=== PATIENT | female | born 1980 | race Caucasian/White ===

== ENCOUNTER → 2016-09-06 | Outpatient (CLI) | payer BC | LOC: COL.RAD 07:22 | DX: R10.11 Right upper quadrant pain (principal) ==

== ENCOUNTER → 2016-09-12 | Outpatient (CLI) | payer BC | LOC: BHSO 14:31 | DX: F33.42 Major depressive disorder, recurrent, in full remission (principal) ==

== ENCOUNTER → 2017-02-14 | Outpatient (CLI) | payer BC | LOC: BHSO 09:08 | DX: F33.42 Major depressive disorder, recurrent, in full remission (principal) ==

== ENCOUNTER → 2017-07-31 | Outpatient (CLI) | payer BC | LOC: BHSO 09:26 | DX: F33.42 Major depressive disorder, recurrent, in full remission (principal) ==

== ENCOUNTER → 2018-01-23 | Outpatient (CLI) | payer BC | LOC: BHSO 09:10 | DX: F41.1 Generalized anxiety disorder (principal) | CPT/HCPCS: G0463 ==

== ENCOUNTER → 2018-06-13 | Outpatient (CLI) | payer BC | LOC: BHSO 13:00 | DX: F41.1 Generalized anxiety disorder (principal) | CPT/HCPCS: G0463 ==

== ENCOUNTER → 2019-01-07 | Outpatient (CLI) | payer BC | LOC: BHSO 08:37 | DX: F41.1 Generalized anxiety disorder (principal) | CPT/HCPCS: G0463 ==

== ENCOUNTER → 2019-04-08 | Outpatient (CLI) | payer BC | LOC: BHSO 09:40 | DX: F41.1 Generalized anxiety disorder (principal) | CPT/HCPCS: G0463 ==

== ENCOUNTER → 2019-07-08 | Outpatient (CLI) | payer BC | LOC: BHSO 09:25 | DX: F41.1 Generalized anxiety disorder (principal) | CPT/HCPCS: G0463 ==

== ENCOUNTER → 2019-10-07 | Outpatient (CLI) | payer BC | LOC: BHSO 12:56 | DX: F33.42 Major depressive disorder, recurrent, in full remission (principal) | CPT/HCPCS: G0463 ==

== ENCOUNTER → 2020-05-23 | Outpatient (CLI) | payer BC | LOC: BHSO 13:18 | DX: F33.42 Major depressive disorder, recurrent, in full remission (principal) | CPT/HCPCS: G0463 ==

== ENCOUNTER → 2021-05-25 | Outpatient (CLI) | payer BC | LOC: MC.RAD 08:45 | DX: Z12.31 Encounter for screening mammogram for malignant neoplasm of breast (principal) ==

== ENCOUNTER → 2024-01-14 | Outpatient (CLI) | payer BC ==
[~2024-01-14] MED LIST: ALLEGRA-D 24HR1 T24 PO; BRINTELLIX10 PO; WELLBUTRIN XL300 M1 PO
== END ==
LOC: MC.RAD 16:35
DX: Z12.31 Encounter for screening mammogram for malignant neoplasm of breast (principal); N63.10 Unspecified lump in the right breast, unspecified quadrant

== ENCOUNTER 2024-03-19 05:55 | Day surgery (SDC) | payer BC ==
[~2024-03-19] VITALS: Ht 157.5 cm; Wt 77.1 kg
[~2024-03-19 05:55] MED LIST changes: -ALLEGRA-D 24HR1 T24 PO; -BRINTELLIX10 PO; +Ondansetron 4 MG/2 ML VIAL IV PRN; -WELLBUTRIN XL300 M1 PO
[2024-03-19] MEDS ORDERED: LR 1,000 ML IV SCH (06:00)
[2024-03-19 06:42] VITALS: BP 121/84; PULSE 86; TEMP 98.2
[2024-03-19] MEDS ORDERED: BRINTELLIX10 PO (06:44)
[2024-03-19] MEDS ORDERED: WELLBUTRIN XL300 M1 PO (06:45)
[2024-03-19] MEDS ORDERED: ALLEGRA-D 24HR1 T24 PO (06:46)
[2024-03-19] MEDS ORDERED: Lidocaine PF 2% (20 MG/ML) 5 ML VIAL ONE (07:00)
[2024-03-19 08:20] VITALS: BP 104/67; PULSE 80; TEMP 97.5
[2024-03-19 08:35] VITALS: BP 105/68; PULSE 76
[2024-03-19 08:50] VITALS: BP 113/81; PULSE 76
--- NOTE | 2024-03-19 09:10 | NUR ---
0820 RETURNS TO ROOM 2 PER CART. AWAKE, ALERT. RESP UNLABORED. AMBULATES TO RECLINER WITH STANDBY ASSIST. DENIES NAUSEA OR ABD PAIN. VITAL SIGNS OBTAINED. CALL LIGHT AT SIDE. IN ROOM. 0835 TOLERATES PO JUICE WITHOUT NAUSEA 0840 DISCHARGE INSTRUCTIONS REVIEWED. PATIENT VERBALIZES UNDERSTANDING. COPY PROVIDED IN DISCHARGE FOLDER. 0855 DR. CEJA HERE TO SEE PATIENT 0905 DRESSES SELF
== END 2024-03-19 09:10 | disposition home or self-care (01) ==
LOC: SDCO 05:55
DX: Z12.11 Encounter for screening for malignant neoplasm of colon (principal); R19.5 Other fecal abnormalities
CPT/HCPCS: J2704; J7120